=== PATIENT | female | born 1950 | race Hispanic/Latino ===

== ENCOUNTER 2018-04-25 20:09 | Emergency (ER) | payer OTHER, SELFPAY ==
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
--- NOTE | 2018-04-25 21:22 | RAD REPORT ---
EXAM DESCRIPTION: RAD - Lumbar Spine 3 Views - 04/25/2018 9:14 pm CLINICAL HISTORY: Back pain FINDINGS: The alignment of the lumbar spine is satisfactory. Mild compression deformity involves the superior endplate of the L1 vertebral body. The age is indete rminate. If clinically indicated further evaluation with MRI may be helpful. . No additional fracture is seen. Bones are osteoporotic
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
--- NOTE | 2018-04-25 21:30 | RAD REPORT ---
EXAM DESCRIPTION: Jose Antonio Single View04/25/2018 9:11 pm CLINICAL HISTORY: Chest pain COMPARISON: 2007 FINDINGS: The lungs appear clear of acute infiltrate. The heart is normal size IMPRESSION: No acute abnormalities displayed
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
== END 2018-04-25 22:45 | disposition home or self-care (01) ==
LOC: ER 20:09
DX: S32.009A Unspecified fracture of unspecified lumbar vertebra, initial encounter for closed fracture (principal); V89.2XXA Person injured in unspecified motor-vehicle accident, traffic, initial encounter; E78.5 Hyperlipidemia, unspecified
CPT/HCPCS: 70450; 71045; 72100; 72125; 72131; 72170

== ENCOUNTER 2020-04-23 07:23 | Day surgery (SDC) | payer OTHER ==
--- OUTSIDE RECORDS SUMMARY | 2020-04-23 07:26 | XMS REPORT | Summary of Care ---
:1950 Author Organization [facility] - Health Address [address] [place] [address] Care Team Providers Name Role Phone José MiguelDaylin Viveros Primary Care Provider Encounter Details Date Type Department Care Team Description 02/01/2020 Orders Only [facility] Doctor Unassigned, No [address] [facility] [place] [address] [address] [id number] Allergies No Known Allergiesdocumented as of this encounter (statuses as of 03/11/2020) Medications Medication Sig Dispensed Refills Start Date End Date Status NAPROXEN (NAPROSYN Take by mouth. 0 Active ORAL) atorvastatin 10 mg Take 10 mg by 0 04/20/2019 Active tablet mouth daily. albuterol (PROAIR HFA) Inhale 2 Puffs 1 Inhaler 0 04/29/2019 Active 90 mcg/actuation every 6 (six) inhalerIndications: hours as needed Bronchitis for Wheezing or Shortness of Breath. promethazine-dextromet Take 5 mL by mouth 180 mL 0 04/29/20 19 Active horphan 6.25-15 mg/5 4 (four) times mL syrupIndications: daily as needed Bronchitis for Cough. documented as of this encounter (statuses as of 03/11/2020) Active Problems Problem Noted Date Ankle pain, left 08/19/2015 documented as of this encounter (statuses as of 03/11/2020) Social History Tobacco Use Types Packs/Day Years Used Date Never Smoker Smokeless Tobacco: Never Used Alcohol Use Drinks/Week oz/Week Comments No 0 Standard drinks or equivalent 0.0 Sex Assigned at Date Recorded Not on file documented as of this encounter Last Filed Vital Signs Not on filedocumented in this encounter Plan of Treatment Not on filedocumented as of this encounter Procedures Procedure Name Priority Date/Time Associated Diagnosis Comme nts REFERRAL- Routine 02/01/2020 12:01 AM CDT REQUEST/RESPONSE documented in this encounter Results Not on filedocumented in this encounter Insurance Payer Benefit Plan / Subscriber ID Effective Phone Address T e Group Dates [facility] [id number] 2015-[facility] [employer] [id number] 1999-Prese Medicare Adv [facility] documented as of this encounter
--- OUTSIDE RECORDS SUMMARY | 2020-04-23 07:26 | XMS REPORT | Continuity of Care Document ---
:1950 Author Organization [facility] t Address [address] [place] [address] Care Team Providers Name Role Phone Doctor Unassigned, Name Attending Clinician Unavailable Problems Condition Condition Condition Status Onset Resolution Last Treating Co mments Source Name Details Category Date Date Treatment Clinician Date Squamous Squamous Problem Active Landrum ge cell Cell 925 Family carcinoma Carcinoma 00:00: Prac tic 00 e Type 2 Type 2 Problem Active [facility] diabetes Diabetes 02-26 Family mellitus Mellitus 00:00: Practi c with with 00 e peripheral Peripheral angiopathy Angiopathy Peripheral Peripheral Problem Active [facility] 22 Family disease Disease 00:00: Practic 00 e Lesion of Lesion of Problem Active Milind benedicto skin of Skin of -22 Family face Face 00:00: Practic 00 e Osteoporos Osteoporos Problem Active [facility] is is 2-04 Family 00:00: Practic 00 e Pain due Pain Due Problem Active Landrum ge to to 8-15 Family varicose Varicose 00:00: Practi c veins of Veins of 00 e lower Lower extremity Extremity Hypothyroi Hypothyroi Problem Active [facility] dism dism -24 Family 00:00: Practic 00 e Type 2 Type 2 Problem Active [facility] diabetes Diabetes 12-27 Family mellitus Mellitus 00:00: Practi c 00 e Mixed Mixed Problem Active [facility] hyperlipid Hyperlipid 12-27 Fa gaby emia emia 00:00: Practic 00 e Benign Benign Problem Active [facility] essential Essential 12-27 Fami ly hypertensi Hypertensi 00:00: Pr actic on on 00 e Allergies, Adverse Reactions, Alerts This patient has no known allergies or adverse reactions. Social History Smoking Status Start Date Stop Date Source Never Smoker Silvia Aguilar P carlos Medications Ordered Filled Start Stop Current Ordering Indication Dosage Frequency Signature Comments Components Source Medication Medication Date Date Medication? Clinician (SIG) Name Name alendronate alendronate No alendronat [facility] 70 mg 70 mg e 70 mg Family tablet Take tablet Take tablet Pract[facility] 1 tablet 1 tablet Take 1 e every week every week tablet by oral by oral every week route. route. by oral route. atorvastati atorvastati No atorvastat [facility] n 10 mg n 10 mg in 10 mg Famil y tablet TAKE tablet TAKE tablet [facility] 1 TABLET BY 1 TABLET BY TAKE 1 e MOUTH ONCE MOUTH ONCE TABLET BY DAILY DAILY MOUTH ONCE DAILY azelastine azelastine No azelastine [facility] 137 mcg 137 mcg 137 mcg Family (0.1 %) (0.1 %) (0.1 %) Practi c nasal spray nasal spray nasal e aerosol aerosol spray [place] 2 [place] 2 aerosol sprays sprays [place] 2 twice a day twice a day sprays by by twice a intranasal intranasal day by route for route for intranasal 30 days. 30 days. route for 30 days. Contour Contour No Contour [facility] Next Test Next Test Next Test Family Strips Test Strips Test Strips Practic blood blood Test blood e sugars once sugars once sugars daily. daily. once (Non-Insuli (Non-Insuli daily. n n (Non-Insul Dependent) Dependent) in Dependent) estradiol estradiol No estradiol [facility] 0.01% (0.1 0.01% (0.1 0.01% (0.1 Family mg/gram) mg/gram) mg/gram) Pra ctic vaginal vaginal vaginal e cream cream cream fluconazole fluconazole No fluconazol [facility] 150 mg 150 mg e 150 mg Family tablet tablet tablet Practic e levocetiriz levocetiriz No levocetiri [facility] ine 5 mg ine 5 mg zine 5 mg Fa agby tablet Take tablet Take tablet [facility] 1/2 tablet 1/2 tablet Take 1/2 e at bedtime at bedtime tablet at as needed as needed bedtime as needed loratadine loratadine No 1 Q1D loratadine [facility] 10 mg 10 mg 10 mg Family tablet Take tablet Take tablet [facility] 1 tablet 1 tablet Take 1 e every day every day tablet by oral by oral every day route. route. by oral route. meloxicam meloxicam No meloxicam [facility] 7.5 mg 7.5 mg 7.5 mg Family tablet Take tablet Take tablet [facility] 1 tablet 1 tablet Take 1 e every day every day tablet by oral by oral every day route at route at by oral dinner. dinner. route at dinner. Microlet Microlet No Microlet Milind benedicto Lancet Lancet Lancet Family Pract[facility] e microlet microlet No microlet Milind benedicto lancets lancets lancets Family misc misc misc Practic e Immunizations Ordered Immunization Filled Immunization Date Status Commen ts Source Name Name influenza, high-dose, influenza, high-dose, 2020-02-21 Completed [facility] quadrivalent quadrivalent 14:50:22 Practice influenza, influenza, 2019-06-27 Completed [facility] injectable, injectable, 11:32:00 Practice quadrivalent, quadrivalent, preservative free preservative free pneumococcal pneumococcal 2019-06-27 Completed [facility] gaby polysaccharide PPV23 polysaccharide PPV23 11:31:00 Practice Tdap Tdap 2019-06-14 Completed [facility] 14:51:00 Practice influenza, influenza, 2018-03-07 Completed [facility] injectable, injectable, 00:00:00 Practice quadrivalent quadrivalent pneumococcal pneumococcal 2017-12-27 Completed [facility] gaby conjugate PCV 13 conjugate PCV 13 13:37:00 Pr actice Vital Signs Vital Name Observation Time Observation Value Comments Source BP Diastolic 2020-03-01 00:00:00 83 mm[Hg] [facility] Height 2020-03-01 00:00:00 57.5 [in_i] [facility] Practice BMI (Body Mass 2020-03-01 00:00:00 30[facility]8 [facility] BP Systolic 2020-03-01 00:00:00 149 mm[Hg] [facility] Body Weight 2020-03-01 00:00:00 145 [lb_av] [facility] BP Diastolic 2019-12-26 00:00:00 76 mm[Hg] [facility] Height 2019-12-26 00:00:00 57.5 [in_i] [facility] BMI (Body Mass 2019-12-26 00:00:00 32.9 kg/m2 [facility] BP Systolic 2019-12-26 00:00:00 121 mm[Hg] [facility] Body Weight 2019-12-26 00:00:00 154.8 [lb_av] [facility] BP Diastolic 2019-07-18 00:00:00 67 mm[Hg] [facility] Height 2019-07-18 00:00:00 57.5 [in_i] [facility] BMI (Body Mass 2019-07-18 00:00:00 33.6 kg/m2 [facility] BP Systolic 2019-07-18 00:00:00 149 mm[Hg] [facility] Body Weight 2019-07-18 00:00:00 157.8 [lb_av] [facility] BP Diastolic 2019-06-27 00:00:00 72 mm[Hg] [facility] Height 2019-06-27 00:00:00 57.5 [in_i] [facility] BMI (Body Mass 2019-06-27 00:00:00 33.3 kg/m2 [facility] BP Systolic 2019-06-27 00:00:00 158 mm[Hg] [facility] Body Weight 2019-06-27 00:00:00 156.4 [lb_av] [facility] BP Diastolic 2019-06-07 00:00:00 75 mm[Hg] [facility] Height 2019-06-07 00:00:00 57.5 [in_i] [facility] BMI (Body Mass 2019-06-07 00:00:00 33 kg/m2 [facility] BP Systolic 2019-06-07 00:00:00 145 mm[Hg] [facility] Body Weight 2019-06-07 00:00:00 155 [lb_av] [facility] BP Diastolic 2019-05-29 00:00:00 76 mm[Hg] [facility] Height 2019-05-29 00:00:00 57.5 [in_i] [facility] BMI (Body Mass 2019-05-29 00:00:00 33.2 kg/m2 [facility] BP Systolic 2019-05-29 00:00:00 132 mm[Hg] [facility] Body Weight 2019-05-29 00:00:00 156 [lb_av] [facility] BP Diastolic 2019-05-02 00:00:00 70 mm[Hg] [facility] Height 2019-05-02 00:00:00 57.5 [in_i] [facility] BMI (Body Mass 2019-05-02 00:00:00 33.4 kg/m2 [facility] BP Systolic 2019-05-02 00:00:00 122 mm[Hg] [facility] Body Weight 2019-05-02 00:00:00 157.2 [lb_av] [facility] BP Diastolic 2019-01-18 00:00:00 81 mm[Hg] [facility] Height 2019-01-18 00:00:00 57.5 [in_i] [facility] Practice BMI (Body Mass 2019-01-18 00:00:00 34.4 kg/m2 [facility] e Family Index) Practice BP Systolic 2019-01-18 00:00:00 121 mm[Hg] [facility] Body Weight 2019-01-18 00:00:00 162 [lb_av] [facility] Practice BP Diastolic 2018-10-16 00:00:00 80 mm[Hg] [facility] Height 2018-10-16 00:00:00 57.5 [in_i] [facility] Practice BMI (Body Mass 2018-10-16 00:00:00 33.8 kg/m2 [facility] BP Systolic 2018-10-16 00:00:00 132 mm[Hg] [facility] Body Weight 2018-10-16 00:00:00 159 [lb_av] [facility] Procedures Procedure Date / Time Performing Clinician Source Performed ankle brachial index 2019-12-26 00:00:00 [facility] MAMMO, screening, digital, 2019-06-27 00:00:00 [facility] bone density 2019-06-27 00:00:00 [facility] ly Practice ankle brachial index 2018-10-16 00:00:00 [facility] 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 Surgery (Gynecology) 2007-06-06 00:00:00 Milind benedicto [facility] Practice Appendectomy 1980-06-06 00:00:00 [facility] Practice Cholecystectomy (Gall 1980-06-06 00:00:00 [facility] Bladder Removal) Practice Plan of Care Planned Activity Planned Date Details Comments Source Future Appointment 2020-06-27 00:00:00 Court Stone [address] Practice [address], [place] [address] Instructions [facility] Encounters Start End Encounter Admission Attending Care Care Encounter Source Date/Time Date/Time Type Type Clinicians Facility Department ID 2020-03-01 2020-03-01 Jolene Contreras [facility] [place] - [id number] [facility] 00:00:00 00:00:00 Jose Silvia Famil y AXLE POLISHER: [id number] Medical - Pract ic Tri [address] [address], ([facility]) [place] [address] , Ph. 2020-02-21 2020-02-21 Don Corea [facility] [place] - [id number] [address] [place] [address] 00:00:00 00:00:00 MD Haylie: Silvia Famil y [address] Medical - Practi c [place] [address], [place] [address], ([facility]) [place] [address] , Ph. 2020-02-01 2020-02-01 Orders PEREZ [id number] 00:00:00 00:00:00 Only Unassigned, BEATTY [id number] [place] [facility] [id number] 2019-12-26 2019-12-26 Court O [facility] [place] - [id number] [facility] 00:00:00 00:00:00 Silvia Stone MD: [id number] Medical - Pract ic [place] [address], [place] [address], ([facility]) [place] [address] , Ph. 2019-07-18 2019-07-18 Court O [facility] [place] - [id number] [facility] 00:00:00 00:00:00 Silvia Stone MD: [id number] Medical - Pract ic Tri [address], [place] [address], ([facility]) [place] [address] , Ph. 2019-06-27 2019-06-27 Court O [facility] [place] - [id number] [facility] 00:00:00 00:00:00 Silvia Stone MD: [address] Medical - Pract ic Tri [address], [address] ([facility]) [place] [address] , Ph. 2019-06-07 2019-06-07 Domingo [facility] [place] - [id number] [facility] 00:00:00 00:00:00 Silvia Quintero Famil y AXLE POLISHER: [address] Medical - Pract ic [place] [address] , [place] [address], ([facility]) [place] [address] , Ph. 2019-05-29 2019-05-29 Domingo [facility] [place] - [id number] [facility] 00:00:00 00:00:00 Silvia Quintero Famil y AXLE POLISHER: [address] Medical - Pract ic [place] [address] , [place] [address], ([facility]) [place] [address] , Ph. 2019-05-02 2019-05-02 Court O [facility] [place] - [id number] [facility] 00:00:00 00:00:00 Bertha [facility] Kavitha palomino MD: [address] [facility] - Pract [address] [place], [address], [place] [address] , Ph. 2019-01-18 2019-01-18 Court Daylin [facility] [place] - [id number] [facility] 00:00:00 00:00:00 Silvia Stone MD: [id number] [facility] Pract[facility] [address], Practice - e [address], [facility] [place] [address] , Ph. 2018-10-16 2018-10-16 Court Daylin [facility] [place] - [id number] [facility] 00:00:00 00:00:00 Bertha [facility] Kavitha palomino MD: [address] [facility] [place], Practice - e [address], [place] [address] , Ph. 2018-07-28 2018-07-28 Dylan [facility] [place] - [id number] [facility] 00:00:00 00:00:00 Rinku: [facility] [address] [facility] [address], Practice - e [address], [place] [address] , Ph. 2018-07-14 2018-07-14 Dylan [facility] [place] - [id number] [facility] 00:00:00 00:00:00 Rinku: Silvia [facility] y [address] [facility] - e [address], [place] [address] , Ph. Results This patient has no known results.
--- OUTSIDE RECORDS SUMMARY | 2020-04-23 07:26 | XMS REPORT | Encounter Summary ---
:1950 Author Care Team Providers Name Role Phone Dr. Court Stone Primary Care Provider [phone] Court Stone MD Primary Care Provider Unavailable Margarita Shah MD Cooker Process Cheese [phone] Alvarez Maradiaga MD Ophthalmologist [phone] Arcelia Tanner MD First Aid Nurse [phone] Reason for Visit immunization(s) Instructions 1. Immunization Fluzone High-Dose Quad 202 0-21 (PF) 240 mcg/0.7 mL IM syringe Discussion Note: None recorded.Patient educational handouts: No information available. Plan of Care Reminders Provider Appointments Awv 30 on or around Eduardo hansel Mao 06/27/2020 MD [facility] None recorded. Referral None recorded. Procedures None recorded. Surgeries None recorded. Imaging None recorded. Medications Name Start Date alendronate 70 mg tablet Take 1 tablet every week by oral route. atorvastatin 10 mg tablet TAKE 1 TABLET BY MOUTH ONCE DAILY azelastine 137 mcg (0.1 %) nasal spray aerosol Coin 2 sprays twice a day by intranasal route for 30 days. Contour Next Test Strips Test blood sugars once daily. (Non-Insulin Dependent ) estradiol 0.01% (0.1 mg/gram) vaginal cream fluconazole 150 mg tablet loratadine 10 mg tablet Take 1 tablet every day by oral route. meloxicam 7.5 mg tablet Take 1 tablet every day by oral route at dinner. Microlet Lancet microlet lancets misc Medications Administered None recorded. Vitals None recorded. Results Lab Results None recorded. 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 Surgery (Gynecology) Information not available 06/06/1980 Appendectomy Information not avai lable 06/06/1980 Cholecystectomy (Gall Bladder Removal) I nformation not available Vaccine List Vaccine Type influenza, high-dose, quadrivalent 02/21/20200.7 mL influenza, injectable, quadrivalent 03/07/2018 influenza, injectable, quadrivalent, pre servative free 06/27/20190.5 mL pneumococcal conjugate PCV 13 12/27/20170.5 mL pneumococcal polysaccharide PPV23 06/27/20190.5 mL Tdap 06/14/2019 Social History Tobacco Smoking Status Never Smoker Past Encounters 02/21/2020 Immunization Don Stallings MD: [address] [place] [address], Ph. History of Present Illness None recorded. Review of Systems None recorded. Physical Exam None recorded.
--- OUTSIDE RECORDS SUMMARY | 2020-04-23 07:26 | XMS REPORT | Encounter Summary ---
:1950 Author Care Team Providers Name Role Phone Dr. Court Stone Primary Care Provider [phone] Court Stone MD Primary Care Provider Unavailable Margarita Shah MD Supervisor Blood [phone] Alvarez Maradiaga MD Ophthalmologist [phone] Arcelia Tanner MD Tobacco Dipper [phone] Reason for Visit sore throat; cough Instructions 1. Seasonal allergic rhinitis levocetirizine 5 mg tablet 2. Body mass index 30+ - obesity body mass index: care inst ructions learning about healthy franky ght Discussion Note: None recorded. Plan of Care Patient Instructions Medications prescribed today. Pleas e take as directed Follow-up if symptoms get worse, or no i mprovement Reminders Provider Appointments Awv 30 on or around Eduardo hamm Daylin 06/27/2020 MD [facility] None recorded. Referral None recorded. Procedures None recorded. Surgeries None recorded. Imaging None recorded. Medications Name Start Date alendronate 70 mg tablet Take 1 tablet every week by oral route. atorvastatin 10 mg tablet TAKE 1 TABLET BY MOUTH ONCE DAILY azelastine 137 mcg (0.1 %) nasal spray aerosol [place] 2 sprays twice a day by intranasal route for 30 days. Contour Next Test Strips Test blood sugars once daily. (Non-Insulin Dependent ) estradiol 0.01% (0.1 mg/gram) vaginal cream fluconazole 150 mg tablet levocetirizine 5 mg tablet Take 1/2 tablet at bedtime as needed loratadine 10 mg tablet Take 1 tablet every day by oral route. meloxicam 7.5 mg tablet Take 1 tablet every day by oral route at dinner. Microlet Lancet microlet lancets misc Medications Administered None recorded. Vitals Height Weight BMI Blood Pressure 4 ft 9.5 in 145 lbs 30.8 kg/m2 149/83 mm[Hg] Results Lab Results None recorded. 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 Surgery (Gynecology) Information not available 06/06/1980 Appendectomy Information not avai lable 06/06/1980 Cholecystectomy (Gall Bladder Removal) I nformation not available Vaccine List Vaccine Type influenza, high-dose, quadrivalent 02/21/20200.7 mL influenza, injectable, quadrivalent 03/07/2018 influenza, injectable, quadrivalent, pre servative free 06/27/20190.5 mL pneumococcal conjugate PCV 13 12/27/20170.5 mL pneumococcal polysaccharide PPV23 06/27/20190.5 mL Tdap 06/14/2019 Social History Tobacco Smoking Status Never Smoker Past Encounters 03/01/2020 Seasonal Allergic Rhinitis; Body Mass In dex 30+ - Obesity Jolene Garcia, CONTAINER FINISHER: [address] [address], Ph. 02/21/2020 Immunization Don Stallings MD: 6[address] [facility] ite [address] [place] [phone], Ph. History of Present Illness Note: 69 yo female c/o productive cough, nasal congestion, clear nasal drainage, sore throat x 1 day. Worse at night, better throughout the day. Worse with increased pollen.<div>
</div><div>Denies sinus pressure, ear pain, fever, myalgia, diarrhea.
</div><div& gt;
</div><div>Recent ill contacts
</div><div>
</div><div>Flu vaccine UTD</div> Review of Systems Comprehensive General Adult ROS Reported By: Patient Constitutional: Constitutional: no fever, no night sweats, no significant weight gain, no significant weight loss Eyes: Eyes: no vision change, no i rritation ENMT: Ears: no difficulty hearing, no ear pain. Nose: no nose problems, no sinus problems. Mouth/Throat: no teeth problems, sore throat Cardiovascular: Cardiovascular: no chest carson n, no shortness of breath when walking, no palpitations, no lightheadedness Respiratory: Respiratory: no wheezing, no shortness of breath, no coughing up blood, cough Gastrointestinal: Gastrointestinal: no abdomin al pain, no nausea, no vomiting, normal appetite, no diarrhea Genitourinary: Genitourinary: no incontinen ce Musculoskeletal: Musculoskeletal: no muscle a ches, no muscle weakness, no swelling in the extremities Neurologic: Neurologic: no weakness, no numbness, no dizziness, no headaches Psychiatric: Psych: no depression, no sle ep disturbances, no anxiety, no suicidal thoughts Endocrine: Endocrine: no fatigue Hematologic/Lymphatic: Hematologic/Lymphatic no swo llen glands, no bruising, no excessive bleeding Allergic/Immunologic: Allergy/Immunologic: no sinu s pressure, no itching, no hives, runny nose, frequent sneezin g Physical Exam General Adult Exam (Female) Reported By: Patient Constitutional: General Appearance: healthy- appearing. Level of Distress: NAD Psychiatric: Insight: good judgement. Men gloria Status: active and alert, normal mood, normal affect. Orienta tion: to time, to place, to person. Memory: recent memory normal Head: Head: normocephalic, atrauma tic ENMT: Hearing: no hearing loss Neck: Neck: FROM Lungs: Respiratory effort: no dyspn ea
[2020-04-23] MEDS ORDERED: Ringers Lactate 1,000 ML IV ONE (07:55)
[2020-04-23] MEDS ORDERED: propofoL 200 MG/20 ML VIAL IV ONE (08:25)
[2020-04-23] MEDS ORDERED: LIDOCAINE 1% MPF 5 ML VIAL ONE (08:25)
--- NOTE | 2020-04-23 08:55 | ENDO RPT ---
[address], [id number] COLONOSCOPY PROCEDURE REPORT EXAM DATE: 04/23/2020 PATIENT NAME: Alyssa Yusuf MR #: [id number] BIRTHDATE: 1950 ATTENDING: Bahman Puckett DR STATUS: outpatient PARISH WORKER: Smooth Villavicencio and Arina Scott RN INDICATIONS: The patient is a 69 yr old Female here for a colonoscopy due to abdominal pain PROCEDURE PERFORMED: Screening Colonoscopy and Colonoscopy MEDICATIONS: Per Anesthesia. ESTIMATED BLOOD LOSS: None CONSENT: The patient understands the risks and benefits of the procedure and understands that these risks include, but are not limited to: sedation, allergic reaction, infection, perforation and/or bleeding. Alternative means of evaluation and treatment include, among others: physical exam, x-rays, and/or surgical intervention. The patient elects to proceed with this endoscopic procedure. DESCRIPTION OF PROCEDURE: During intra-op preparation period all mechanical medical equipment was checked for proper function. Hand hygiene and appropriate measures for infection prevention was taken. Procedure, possible complications, alternatives including, but not limited to possibility of bleeding, perforation, tear, infection, sepsis, need for surgery, need for blood transfusion, were explained to the patient. After the risks, benefits and alternatives of the procedure were thoroughly explained, Informed consent was verified, confirmed and timeout was successfully executed by the treatment team. The patient was placed in the left lateral position. A digital rectal exam was performed and revealed internal hemorrhoids. After appropriate level of anesthesia, the scope was passed. The EC-[id number] ([id number]) endoscope was introduced through the anus and advanced to the cecum, which was identified by both the appendix and ileocecal valve. The quality of the prep was good. The instrument was then slowly withdrawn as the colon was fully examined. Scope withdrawal time was 8 minutes. COLON FINDINGS: A normal appearing cecum, ileocecal valve, and appendiceal orifice were identified. the ascending, transverse, descending, sigmoid colon, and rectum appeared unremarkable. Retroflexed views revealed small hemorrhoids. The scope was then completely withdrawn from the patient and the procedure terminated. ADVERSE EVENTS: There were no complications. IMPRESSIONS: 1. A normal appearing cecum, ileocecal valve, and appendiceal orifice were identified. the ascending, transverse, descending, sigmoid colon, and rectum appeared unremarkable 2. Internal hemorrhoids RECOMMENDATIONS: 1. fiber rich diet 2. follow-up: office PRN 3. yearly hemoccult starting in 4 years 4. hemorrhoidal hygiene RECALL: Return in 10 year(s) for Colonoscopy. Fecal FIT test in [address] eSigned: Bahman Puckett DR 04/23/2020 8:55 AM cc: CPT CODES: ICD9 CODES: PATIENT NAME: Alyssa Yusuf MR#: [id number]
[2020-04-23 10:01] VITALS: TEMP 96.5
[2020-04-23 10:03] VITALS: BP 108/72; O2SAT 97
== END 2020-04-23 09:15 | disposition home or self-care (01) ==
LOC: OR 07:23
PROVIDERS: ATTEND Surgery
PROC: 0DJD8ZZ Inspection of Lower Intestinal Tract, Via Natural or Artificial Opening Endoscopic (ICD-10-PCS; principal; 2020-04-23 08:30)
DX: Z12.11 Encounter for screening for malignant neoplasm of colon (principal); E11.9 Type 2 diabetes mellitus without complications; Z20.828 Contact with and (suspected) exposure to other viral communicable diseases; K64.9 Unspecified hemorrhoids; K59.00 Constipation, unspecified; R10.9 Unspecified abdominal pain; K43.2 Incisional hernia without obstruction or gangrene
CPT/HCPCS: 45378; U0002; J2704; J7120